=== PATIENT | female | born 1985 | race Caucasian/White ===

== ENCOUNTER 2016-09-21 16:50 | Emergency (ER) | payer MEDICARE, MEDICAID ==
[~2016-09-21 16:50] MED LIST: AMBIEN10 M1 PO; CEPHALEXIN500 M1 PO; GAS-X125 M2 PO; HYDROCODON-ACE1 EA16 PO; PANTOPRAZOLE SO40 M3 PO; ZANTAC 7575 MG PO
[2016-09-21] MEDS ORDERED: HYDROXYZINE HCL10 M1 PO (16:53)
[2016-09-21] MEDS ORDERED: VIBRAMYCIN100 M1 PO (16:53)
[2016-09-21 17:40] LABS: BASO % 0.2 % (0-2); HCT-HEMATOCRIT 40.7 % (34.0-49.0); IMMATURE GRANULOCYTES ABSOLUTE 0.02 tho/cmm (0-0.03); IMMATURE GRANULOCYTES PERCENT 0.2 % (0-0.3); LYMPH % 5.6 % (20-45); LYMPH ABSOLUTE COUNT 0.6 tho/cmm (0.8-4.5); MCH (MEAN CORPUSCULAR HGB) 31.1 pg (28.0-32.0); MCHC MEAN CORPUSCULAR HGB CONC 34.4 % (32.0-36.0); MCV (MEAN CELL VOLUME) 90.4 fl (82.0-96.0); MONO % 3.9 % (0-12); MONOCYTE ABSOLUTE COUNT 0.4 tho/cmm (0.0-1.2); NEUTROPHIL ABSOLUTE COUNT 9.8 tho/cmm (1.6-8.0); NEUTROPHIL-AUTOMATED 9.8 tho/cmm (1.6-8.0); NEUTROPHILS % 90.1 % (40-80); PLATELET COUNT 222 tho/cmm (150-450); RED CELL DISTRIBUTION WIDTH 14.6 % (12.4-16.4); WHITE BLOOD COUNT 10.9 tho/cmm (4.0-10.0)
[2016-09-21 17:54] LABS: ALB/GLOB RATIO 0.7 (0.8-2.0); ALBUMIN 3.2 g/dl (3.5-5.0); ALKALINE PHOSPHATASE 87 U/L (33-138); ALT/SGPT 11 U/L (12-78); ANION GAP 13 mmol/L (0-20); AST/SGOT 20 U/L (10-40); BILIRUBIN,TOTAL 0.6 mg/dl (0-1.5); BLOOD UREA NITROGEN 11 mg/dl (6-24); CALCIUM 8.4 mg/dl (8.5-10.5); CARBON DIOXIDE-VENOUS 25 mmol/L (22-32); CHLORIDE 105 mmol/l (96-110); CREATININE 0.96 mg/dl (0.50-1.10); GLUCOSE 121 mg/dL (70-110); LIPASE 74 U/L (73-393); POTASSIUM 3.5 mmol/L (3.7-5.1); SODIUM 139 mmol/L (135-145); eGFR VALUE FOR BLACK >90 mL/Min
[2016-09-21] MEDS ORDERED: ZOFRAN ODT4 MG PO (20:04)
[2016-09-21 20:14] LABS: URINE BILIRUBIN NEGATIVE (NEG); URINE BLOOD SMALL (NEG); URINE GLUCOSE (UA) NEGATIVE (NEG); URINE KETONE MODERATE (NEG); URINE LEUKOCYTE ESTERASE NEGATIVE (NEG); URINE NITRITE NEGATIVE (NEG); URINE PROTEIN MODERATE (NEG)
[2016-09-21 20:16] LABS: URINE APPEARANCE HAZY; URINE COLOR YELLOW
[2016-09-21 20:27] LABS: URINE AMORPHOUS 1+; URINE RBC RARE /[HPF] (0-5)
== END 2016-09-21 20:36 ==
LOC: EDMED 16:50
PROVIDERS: Emergency Medicine
DX: R11.10 Vomiting, unspecified (principal); R19.7 Diarrhea, unspecified; Z98.890 Other specified postprocedural states
CPT/HCPCS: J2405; J7030; Q9967